=== PATIENT | female | born 1960 | race American Indian/Alaskan Native ===

== ENCOUNTER 2017-08-08 13:13 | Observation (INO) | payer OTHER ==
[~2017-08-08] VITALS: Ht 147.3 cm; Wt 52.6 kg
[2017-08-08 14:39] LABS: HEMATOCRIT 35.9 % (36.0-46.0); MCH 24.9 PG (29.0-34.0); MCHC 33.7 G/DL (30.0-36.0); MEAN PLAT.VOLUME 11.7 uM^3 (9.5-12.4); PLATELET COUNT 195 K/uL (156-360); RBC DIS.WIDTH-CV 15.3 % (11.8-14.6); RBC DIS.WIDTH-SD 40.9 % (39-53); RED BLOOD COUNT 4.85 M/uL (3.80-5.20); WHITE BLOOD COUNT 7.9 K/uL (4.1-10.2)
[2017-08-08 14:48] LABS: TROP-I INTERPRETATION NEGATIVE; TROPONIN-I 0.02 ng/mL (0.0-0.30)
[2017-08-08 14:51] LABS: ANION GAP 6 MEQ/L (2-14); CHLORIDE 111 MEQ/L (99-109); GFR ESTIMATE (CALCULATED) > 59 mL/min/; GLUCOSE 99 mg/dL (70-99); POTASSIUM 3.7 MEQ/L (3.7-5.4); SAMPLE HEMOLYSIS CHECK 1; SAMPLE ICTERIC CHECK 0; SAMPLE LIPEMIA CHECK 0; SODIUM 143 MEQ/L (136-147); UREA NITROGEN (BUN) 14 mg/dL (9-23)
[2017-08-08] MEDS ORDERED: DIPROSONE 0.05%15 G1 TP (17:11)
[2017-08-08 17:12] LABS: CREATINE KINASE 56 IU/L (1-294); MAGNESIUM 1.8 mg/dl (1.3-2.7)
[2017-08-08] MEDS ORDERED: DAILY VALUE1 EACH PO (17:12)
[2017-08-08] MEDS ORDERED: IBUPROFEN600 MG PO (17:12)
[2017-08-08] MEDS ORDERED: CALCIUM 500 MG1 EACH PO (17:13)
[2017-08-08 19:03] LABS: D-DIMER ELISA < 150.00 ng/mLDDU (<230)
[2017-08-08 19:09] LABS: TOTAL BILIRUBIN 0.5 mg/dL (0.0-1.0)
[2017-08-08 19:11] LABS: ALKALINE PHOSPHATASE 156 IU/L (3-129)
[2017-08-08 19:13] LABS: DIRECT BILIRUBIN 0.3 mg/dL (0.0-0.3)
[2017-08-08 19:14] LABS: LIPASE 25 U/L (1.0-51.0)
[2017-08-08 20:16] VITALS: BP 105/48
[2017-08-08 20:45] LABS: HDL CHOLESTEROL 57 MG/DL (Desirable>=50); LDL CHOLESTEROL 55 mg/dL (Desirable<100); NON-HDL CHOLESTEROL 72 mg/dL (Desirable<160); TOTAL CHOLESTEROL 129 mg/dL (Desirable<200); TRIGLYCERIDES 83 MG/DL (Normal: <150)
[2017-08-08 21:06] LABS: TROP-I INTERPRETATION NEGATIVE; TROPONIN-I 0.02 ng/mL (0.0-0.30)
[2017-08-09 00:02] VITALS: BP 152/57
[2017-08-09 03:20] LABS: HEMATOCRIT 33.8 % (36.0-46.0); MCH 25.4 PG (29.0-34.0); MCHC 34.6 G/DL (30.0-36.0); MCV 73.3 FL (83-99); MEAN PLAT.VOLUME 11.3 uM^3 (9.5-12.4); PLATELET COUNT 192 K/uL (156-360); RBC DIS.WIDTH-CV 15.1 % (11.8-14.6); RBC DIS.WIDTH-SD 39.4 % (39-53); RED BLOOD COUNT 4.61 M/uL (3.80-5.20); WHITE BLOOD COUNT 7.1 K/uL (4.1-10.2)
[2017-08-09 03:21] LABS: CHLORIDE 109 mEq/L (99-109); POTASSIUM 3.7 mEq/L (3.7-5.4); SODIUM 145 mEq/L (136-147)
[2017-08-09 03:22] LABS: GLUCOSE 122 mg/dL (70-99)
[2017-08-09 03:24] LABS: ANION GAP 8 MEQ/L (2-14)
[2017-08-09 03:26] VITALS: BP 107/57
[2017-08-09 03:26] LABS: GFR ESTIMATE (CALCULATED) > 59 mL/min/
[2017-08-09 03:27] LABS: UREA NITROGEN (BUN) 16 mg/dL (9-23)
[2017-08-09 03:32] LABS: TROP-I INTERPRETATION NEGATIVE; TROPONIN-I 0.01 ng/mL (0.0-0.30)
[2017-08-09 08:07] VITALS: BP 113/57
[2017-08-09] MEDS ORDERED: ASPIR-LOW81 MG PO (12:03)
== END 2017-08-09 14:08 | disposition home or self-care (01) ==
LOC: EME 13:13 → EDOF 17:46 → 5WEST 17:46 → EDOF 17:46 → ENRESERV 17:56 → 5WEST 20:12
PROVIDERS: Hospitalist
DX: R07.9 Chest pain, unspecified (principal); R06.02 Shortness of breath; E07.9 Disorder of thyroid, unspecified; I34.0 Nonrheumatic mitral (valve) insufficiency; I27.20 Pulmonary hypertension, unspecified; D50.9 Iron deficiency anemia, unspecified; Z82.0 Family history of epilepsy and other diseases of the nervous system; Z83.3 Family history of diabetes mellitus
CPT/HCPCS: 71020; 80048; 80061; 80076; 81003; 82550; 83690; 83735; 84439; 84443; 84484; 85027; 85379; 93005; 93306; 99281; 99284; G0378